=== PATIENT | male | born 1980 | race Caucasian/White ===

== ENCOUNTER 2018-02-25 12:00 | Emergency (ER) | payer SELFPAY ==
[2018-02-25] MEDS ORDERED: LORazepam 2 MG/ML VIAL ONE (12:26)
[2018-02-25] MEDS ORDERED: NA CHLORIDE 0.9% 1,000 ML ONE (12:26)
[2018-02-25 12:37] LABS: Absolute Monocytes 0.5 K/uL (0.1-1.3); Absolute Neutrophil 3.8 K/uL (1.8-8.0); Basophils % 0.9 % (0-1.3); Eosinophils % 1.6 % (0-4.4); Hematocrit 49.4 % (39.6-49.0); Lymphocytes % 39.7 % (15.3-44.8); MCH 33.9 pg (27.0-35.0); MCV 98.9 fL (80-100); MPV 9.7 fL (7.6-11.3); Monocytes % 7.2 % (3.3-12.3)
[2018-02-25 12:51] LABS: ALT/SGPT 138 U/L (12-78); AST/SGOT 103 U/L (15-37); Albumin 4.2 g/dL (3.4-5.0); Alkaline Phosphatase 92 U/L (45-117); BUN Blood Urea Nitrogen 9 mg/dL (7-18); Bicarbonate 27 mmol/L (21-32); Bilirubin Direct 0.2 mg/dL (0-0.2); Glucose Level 99 mg/dL (74-106); Lipase 162 U/L (73-393); Potassium 3.4 mmol/L (3.5-5.1); Protein, Total 7.8 g/dL (6.4-8.2); Sodium Level 141 mmol/L (136-145)
[2018-02-25] MEDS ORDERED: ONDANSETRON 4 MG/2 ML VIAL ONE (12:54)
[2018-02-25 12:56] LABS: Alcohol Serum/Plasma 110 mg/dL (0-3)
--- NOTE | 2018-02-25 13:15 | RAD REPORT ---
EXAM DESCRIPTION: US - Abdomen Exam Limited - 02/25/2018 1:03 pm CLINICAL HISTORY: Abdominal pain COMPARISON: None. FINDINGS: Gallbladder size is normal. No gallstones confirmed. Small echogenic focus near the neck o f the gallbladder suspected to be artifact rather than echogenic polyp or adherent stone. No sludge. No wall thickening or pericholecystic fluid. Common bile duct is partially obscured. No common duct s tone suspected. Liver shows a coarsened increased echogenicity typical for fatty infiltration. This d oes decrease sensitivity for liver lesion detection. IMPRESSION: No gallstones confirmed and no sludge identifiable. No acute gallbladder finding identif iable. Biliary tree is not optimally seen. No dilatation or stone suspected. Diffuse fatty infiltration of a partially imaged liver.
[2018-02-25 15:11] LABS: Urine Blood NEGATIVE (NEG); Urine Glucose NEGATIVE (NEG); Urine Protein 2+ (NEG); Urine Specific Gravity 1.025 (1.005-1.030)
--- NOTE | 2018-02-25 15:11 | RAD REPORT ---
EXAM DESCRIPTION: CT - Abdomen Pelvis W Contrast - 02/25/2018 2:59 pm CLINICAL HISTORY: Abdominal pain, nausea and vomiting COMPARISON: None. TECHNIQUE: Biphasic, helical CT imaging of the abdomen and pelvis was performed following 100 ml non -ionic IV contrast. Oral contrast was given. All CT scans are performed using dose optimization technique as appropriate and may include automated exposure control or mA/KV adjustment according to patient size. FINDINGS: No suspicious findings in the lung bases. Liver shows diffuse fatty infiltration with no focal liver lesion. Spleen and pancreas show no suspic ious findings. Gallbladder and biliary tree are also without suspicious finding. Symmetric renal function is seen with no hydronephrosis or suspicious renal mass. No hydronephrosis o r acute renal parenchymal process. No urinary bladder abnormality. No dilated bowel loops or bowel wall thickening. No free air, free fluid or inflammatory stranding. No hernia, mass or bulky lymphadenopathy. No adrenal abnormality. No suspicious bony findings. IMPRESSION: Contrast enhanced CT abdomen and pelvis showing no acute finding. Diffuse fatty infiltration of the liver.
--- NOTE | 2018-02-25 15:33 | ER ---
Nurse's Notes [facility] Name: Rickie Bailey Age: 37 yrs Sex: Male : 1980 Arrival Date: 02/25/2018 Time: 12:02 Bed 6 Private MD: None, None Diagnosis: Hyperventilation;Alcoholic gastritis;Alcoholic fatty liver;Dehydration Presentation: 02/25 12:05 Presenting complaint: Patient states: for weeks now geoff been having Chest pressure, pt sg reports that he has had nausea and vomiting, pt states he was seen for this complaint and everything was normal. Transition of care: patient was not received from another setting of care. Onset of symptoms was February 25, 2018. Risk Assessment: Do you want to hurt yourself or someone else? Patient reports no desire to harm self or others. Initial Sepsis Screen: Does the patient meet any 2 criteria? No. Patient's initial sepsis screen is negative. Does the patient have a suspected source of infection? No. Patient's initial sepsis screen is negative. Care prior to arrival: None. 12:05 Method Of Arrival: Ambulatory sg 12:05 Acuity: ABRIL 2 sg Historical: - Allergies: 12:05 Codeine; sg - Home Meds: 12:35 carvedilol 12.5 mg oral tab 1 tab 2 times per day [Active]; sg - PMHx: 12:10 None; sg - PSHx: 12:05 None; sg - Immunization history:: Adult Immunizations not up to date. - Social history:: Smoking status: Patient uses tobacco products, smokes one pack cigarettes per day. Patient uses alcohol, on a daily basis. - Ebola Screening: : Patient negative for fever greater than or equal to 101.5 degrees Fahrenheit, and additional compatible Ebola Virus Disease symptoms Patient denies exposure to infectious person Patient denies travel to an Ebola-affected area in the 21 days before illness onset No symptoms or risks identified at this time. - Family history:: not pertinent. - Hospitalizations: : No recent hospitalization is reported. Screenin:21 Abuse screen: Denies threats or abuse. Denies injuries from another. Nutritional sv screening: No deficits noted. Tuberculosis screening: No symptoms or risk factors identified. Fall Risk None identified. Assessment: 12:27 General: Appears uncomfortable, unkempt, Behavior is anxious, Smells of alcohol, ss Reports feeling ill for "for weeks, has gotten worse over the past few days.". Denies fever. Pain: Complains of pain in abdomen Pain does not radiate. Pain began "few weeks ago, has gotten progressively worse". Neuro: Level of Consciousness is awake, alert, obeys commands, Oriented to person, place, time, situation. Cardiovascular: Reports nausea, shortness of breath, intermittent chest tightness for weeks, has gotten worse this morning. Was seen in another ER three days ago for similar symptoms and sent home with unknown diagnosis. Capillary refill < 3 seconds is brisk in bilateral fingers Rhythm is sinus tachycardia. Respiratory: Airway is patent Respiratory effort is even, Respiratory pattern is regular, hyperventilation Breath sounds are clear bilaterally. Denies cough. GI: Reports upper abdominal pain, nausea, vomiting, pt states, "my liver hurts and my what ever is over here (pointing to LUQ) hurts probably because I've been drinking so much lately.". EENT: Oral mucosa is moist. Throat is clear. Derm: Skin is intact, is healthy with good turgor, Skin is dry, Skin is pink, warm \\T\\ dry. normal. Musculoskeletal: Circulation, motion, and sensation intact. Capillary refill < 3 seconds, is brisk, in bilateral fingers. Range of motion: intact in all extremities, Swelling. 12:54 Reassessment: Patient appears in no apparent distress at this time. Patient and/or sv family updated on plan of care and expected duration. Pain level reassessed. Patient is alert, oriented x 3, equal unlabored respirations, skin warm/dry/pink. 14:20 Reassessment: Patient appears in no apparent distress at this time. Patient and/or sv family updated on plan of care and expected duration. Pain level reassessed. Patient is alert, oriented x 3, equal unlabored respirations, skin warm/dry/pink. 15:46 Reassessment: Patient appears in no apparent distress at this time. Patient and/or sv family updated on plan of care and expected duration. Pain level reassessed. Patient is alert, oriented x 3, equal unlabored respirations, skin warm/dry/pink. Vital Signs: 12:08 Pain 10/10; sg 12:09 Pulse 123; Resp 20; Pulse Ox 100% on R/A; sg 12:10 BP 143 / 101; sg 12:21 BP 127 / 90; Pulse 124; Resp 15; Pulse Ox 98% ; sv 13:21 BP 142 / 82; Pulse 111; Resp 18; Pulse Ox 99% on R/A; dh3 14:21 BP 118 / 78; Pulse 124; Resp 17; Pulse Ox 96% on R/A; dh3 15:20 BP 152 / 95; Pulse 113; Resp 18; Pulse Ox 98% ; sv ED Course: 12:02 Patient arrived in ED. sb2 12:02 None, None is Private Physician. sb2 12:05 Arm band placed on. sg 12:08 Triage completed. sg 12:16 Clarence Grande MD is Attending Physician. rn 12:20 Annie Bowen RN is Primary Nurse. sv 12:20 Inserted saline lock: 20 gauge in right antecubital area, using aseptic technique. sv 12:21 Patient has correct armband on for positive identification. Placed in gown. Bed in low sv position. cafeteria monitor on. Pulse ox on. NIBP on. 12:24 EKG done, by conservation technician. reviewed by Clarence Grande MD. sm3 12:28 Patient maintains SpO2 saturation greater than 95% on room air. sv 12:45 X-ray completed. Portable x-ray completed in exam room. Patient tolerated procedure sw well. 12:47 XRAY Chest (1 view) In Process Unspecified. EDMS 13:03 US Abdomen Limited In Process Unspecified. EDMS 13:04 Ultrasound completed. Patient tolerated well. hr 14:[address] via wheelchair. nj 14:56 CT completed. Patient tolerated procedure well. Patient moved back from CT. nj 14:59 CT Abd/Pelvis - W/Contrast In Process Unspecified. EDMS 15:46 No provider procedures requiring assistance completed. IV discontinued, intact, sv bleeding controlled, No redness/swelling at site. Pressure dressing applied. Administered Medications: 12:26 Drug: Ativan 1 mg Route: IVP; Site: right antecubital; ss 12:50 Follow up: Response: No adverse reaction; No change in condition sv 12:27 Drug: NS 0.9% 1000 ml Route: IV; Rate: 1000 ml; Site: right antecubital; ss 13:30 Follow up: Response: No adverse reaction; IV Status: Completed infusion; IV Intake: sv 1000ml 12:52 Drug: Zofran 4 mg Route: IVP; Site: right antecubital; sv 13:15 Follow up: Response: No adverse reaction sv 12:54 Drug: Ativan 1 mg Route: IVP; Site: right antecubital; sv 13:15 Follow up: Response: No adverse reaction sv Intake: 13:30 IV: 1000ml; Total: 1000ml. sv Outcome: 15:32 Discharge ordered by . rn 15:46 Discharged to home ambulatory. sv 15:46 Condition: stable 15:46 Discharge instructions given to patient, Instructed on discharge instructions, follow up and referral plans. no drinking with medication, no driving heavy equipment, medication usage, Demonstrated understanding of instructions, follow-up care, medications, Prescriptions given X 1. 15:48 Patient left the ED. sv Signatures: Dispatcher [employer] EDMS Annie Bowen RN RN sv Gay, Steven, RN RN sg Rod, Clarence Bryan MD MD rn Smirch, Shelby, RN RN ss Warren, Shannon sw Jordan, Karena Barrera 3 Kiersten Clayton Shakira 3 Corrections: (The following items were deleted from the chart) 12:20 12:05 Acuity: ABRIL 3 sg sg 14:27 14:21 BP 160 / 112; Pulse 124bpm; Resp 17bpm; Pulse Ox 96% RA; dh3 dh3
--- NOTE | 2018-02-25 15:49 | EDPHYS ---
Physician Documentation [facility] Name: Rickie Bailey Age: 37 yrs Sex: Male : 1980 Arrival Date: 02/25/2018 Time: 12:02 Bed 6 Private MD: None, None ED Physician Clarence Grande HPI: 02/25 13:03 This 37 yrs old Male presents to ER via Ambulatory with complaints of Chest rn Pressure, Weakness, Numbness. 13:03 The patient or guardian reports chest pain that is located primarily in the chest rn diffusely. The pain does not radiate. Associated signs and symptoms: Pertinent positives: abdominal pain, lightheadedness, palpitations, vomiting. The chest pain is described as aching. Duration: The patient or guardian reports multiple episodes, that are intermittent. Modifying factors: The symptoms are alleviated by nothing. the symptoms are aggravated by nothing. Severity of pain: At its worst the pain was moderate in the emergency department the pain is unchanged. The patient has experienced similar episodes in the past. The patient has been recently seen by a physician:. REports chest pain/palpitations/abd pain/nausea/vomiting, has been going on "for awhile", seen 3 days ago at outside ER, told everything ok, sent home with phenergan, is daily drinker, known liver problems but no cirrhosis. Vomiting when attempting to eat.. Historical: - Allergies: 12:05 Codeine; sg - Home Meds: 12:35 carvedilol 12.5 mg oral tab 1 tab 2 times per day [Active]; sg - PMHx: 12:10 None; sg - PSHx: 12:05 None; sg - Immunization history:: Adult Immunizations not up to date. - Social history:: Smoking status: Patient uses tobacco products, smokes one pack cigarettes per day. Patient uses alcohol, on a daily basis. - Ebola Screening: : Patient negative for fever greater than or equal to 101.5 degrees Fahrenheit, and additional compatible Ebola Virus Disease symptoms Patient denies exposure to infectious person Patient denies travel to an Ebola-affected area in the 21 days before illness onset No symptoms or risks identified at this time. - Family history:: not pertinent. - Hospitalizations: : No recent hospitalization is reported. ROS: 13:03 Constitutional: Negative for fever, chills, and weight loss, Eyes: Negative for injury, rn pain, redness, and discharge, Neck: Negative for injury, pain, and swelling, Cardiovascular: Negative for edema Respiratory: Negative for cough, wheezing, and pleuritic chest pain, Abdomen/GI: + abd pain/nausea/vomiting Back: Negative for injury and pain, MS/Extremity: Negative for injury and deformity, Skin: Negative for injury, rash, and discoloration, Neuro: + generalized weakness, + tingling of hands and perioral region Exam: 13:03 Constitutional: This is a well developed, well nourished patient who is awake, alert, rn appears anxious Head/Face: Normocephalic, atraumatic. Eyes: Pupils equal round and reactive to light, extra-ocular motions intact. Lids and lashes normal. Conjunctiva and sclera are non-icteric and not injected. Cornea within normal limits. Periorbital areas with no swelling, redness, or edema. Neck: Trachea midline, no thyromegaly or masses palpated, and no cervical lymphadenopathy. Supple, full range of motion without nuchal rigidity, or vertebral point tenderness. No Meningismus. Cardiovascular: tachycardic, regular, no murmur Respiratory: + tachypnea with clear bilateral breath sounds Abdomen/GI: Soft, non-tender, with normal bowel sounds. No distension or tympany. No guarding or rebound. No evidence of tenderness throughout. MS/ Extremity: Pulses equal, no cyanosis. Neurovascular intact. Full, normal range of motion. Equal circumference. Neuro: Awake and alert, GCS 15, oriented to person, place, time, and situation. Cranial nerves II-XII grossly intact. Motor strength 5/5 in all extremities. Sensory grossly intact. Vital Signs: 12:08 Pain 10/10; sg 12:09 Pulse 123; Resp 20; Pulse Ox 100% on R/A; sg 12:10 BP 143 / 101; sg 12:21 BP 127 / 90; Pulse 124; Resp 15; Pulse Ox 98% ; sv 13:21 BP 142 / 82; Pulse 111; Resp 18; Pulse Ox 99% on R/A; dh3 14:21 BP 118 / 78; Pulse 124; Resp 17; Pulse Ox 96% on R/A; dh3 15:20 BP 152 / 95; Pulse 113; Resp 18; Pulse Ox 98% ; sv MDM: 12:16 Patient medically screened. rn 15:28 Differential diagnosis: acute pericarditis, anxiety, cholecystitis, Cholelithiasis rn costochondritis, esophagitis, gastritis, gastroesophageal reflux disease (GERD), pancreatitis, pericarditis, pleurisy, pneumothorax. Data reviewed: vital signs, nurses notes, lab test result(s), EKG, radiologic studies, CT scan, plain films, ultrasound, and as a result, I will discharge patient. Counseling: I had a detailed discussion with the patient and/or guardian regarding: the historical points, exam findings, and any diagnostic results supporting the discharge/admit diagnosis, lab results, radiology results, the need for outpatient follow up, to return to the emergency department if symptoms worsen or persist or if there are any questions or concerns that arise at home. Response to treatment: the patient's symptoms have mildly improved after treatment, and as a result, I will discharge patient. Special discussion: Based on the patient's history, exam, and Dx evaluation, there is no indication for emergent intervention or inpatient Tx. It is understood by the patient/guardian that if the Sx's persist or worsen they need to return immediately for re-evaluation. Based on the patient's Hx, exam, and Dx evaluation, there is no indication for emergent surgery or inpatient Tx. It is understood by the patient/guardian that if the Sx's persist or worsen they need to return immediately for re-evaluation. I discussed with the patient/guardian in detail that at this point there is no indication for admission to the hospital. It is understood, however, that if the symptoms persist or worsen the patient needs to return immediately for re-evaluation. Based on the history and exam findings, there is no indication for further emergent testing or inpatient evaluation. I discussed with the patient/guardian the need to see the peanut grader for further evaluation of the symptoms. ED course: Pt improved, no acute findings on w/u, labs consistent with alcoholism that patient admits to, chest pain w/u negative, recommends ETOH cessation and antacid medication as may be alcoholic gastritis. Also recommend detox center if ever wants to quit drinking, which it sounds he is not ready to do yet. Will dc home. . 02/25 12:23 Order name: Basic Metabolic Panel; Complete Time: 13:48 rn 02/25 12:23 Order name: CBC with Diff; Complete Time: 13:48 rn 02/25 12:23 Order name: Hepatic Function; Complete Time: 13:48 rn 02/25 12:23 Order name: Lipase; Complete Time: 13:48 rn 02/25 12:23 Order name: Troponin (emerg Dept Use Only); Complete Time: 13:48 rn 02/25 12:23 Order name: ETOH Level; Complete Time: 13:48 rn 02/25 12:23 Order name: XRAY Chest (1 view) rn 02/25 12:23 Order name: Urine Drug Screen rn 02/25 12:28 Order name: US Abdomen Limited; Complete Time: 13:48 rn 02/25 12:29 Order name: CT Abd/Pelvis - W/Contrast; Complete Time: 15:21 rn 02/25 14:34 Order name: Urine Dipstick--Ancillary (enter results); Complete Time: 15:21 em1 02/25 12:14 Order name: EKG; Complete Time: 12:14 sn 02/25 12:14 Order name: EKG - Nurse/Tech; Complete Time: 12:21 formerly [facility] 02/25 12:23 Order name: IV Start; Complete Time: 12:24 rn 02/25 12:23 Order name: Labs collected and sent; Complete Time: 12:24 rn 02/25 13:09 Order name: EKG Electrocardiogram EDMS Administered Medications: 12:26 Drug: Ativan 1 mg Route: IVP; Site: right antecubital; ss 12:50 Follow up: Response: No adverse reaction; No change in condition sv 12:27 Drug: NS 0.9% 1000 ml Route: IV; Rate: 1000 ml; Site: right antecubital; ss 13:30 Follow up: Response: No adverse reaction; IV Status: Completed infusion; IV Intake: sv 1000ml 12:52 Drug: Zofran 4 mg Route: IVP; Site: right antecubital; sv 13:15 Follow up: Response: No adverse reaction sv 12:54 Drug: Ativan 1 mg Route: IVP; Site: right antecubital; sv 13:15 Follow up: Response: No adverse reaction sv Disposition: 02/25/18 15:32 Discharged to Home. Impression: Hyperventilation, Alcoholic gastritis, Alcoholic fatty liver, Dehydration. - Condition is Stable. - Discharge Instructions: Alcohol Use Disorder, Dehydration, Adult, Gastritis, Adult, Hyperventilation, Alcoholic Liver Disease, [id number]. - Prescriptions for Valium 2 mg Oral Tablet - take 1 tablet by ORAL route every 8-12 hours As needed; 5 tablet. - Medication Reconciliation Form, Thank You Letter, Antibiotic Education, Prescription Opioid Use form. - Follow up: Private Physician; When: As needed; Reason: Recheck today's complaints, Re-evaluation by your physician. - Problem is new. - Symptoms have improved. Signatures: Dispatcher [employer] Annie Ojeda RN RN sv Gay, Steven RN RN sg Francy Young, CLINICAL DIETICIAN-C CLINICAL DIETICIAN-Csnw Clarence Grande MD MD rn Smirch, Shelby, RN RN ss Corrections: (The following items were deleted from the chart) 13:06 13:03 Constitutional: Negative for fever, chills, and weight loss, Eyes: Negative for rn injury, pain, redness, and discharge, Neck: Negative for injury, pain, and swelling, Cardiovascular: Negative for edema Respiratory: Negative for cough, wheezing, and pleuritic chest pain, Abdomen/GI: + abd pain/nausea/vomiting Back: Negative for injury and pain, MS/Extremity: Negative for injury and deformity, Skin: Negative for injury, rash, and discoloration, Neuro: + generalized weakness rn 13:10 13:03 Constitutional: This is a well developed, well nourished patient who is awake, rn alert, and in no acute distress. rn 15:48 15:32 02/25/2018 15:32 Discharged to Home. Impression: Hyperventilation; Alcoholic sv gastritis; Alcoholic fatty liver; Dehydration. Condition is Stable. Forms are Medication Reconciliation Form, Thank You Letter, Antibiotic Education, Prescription Opioid Use. Follow up: Private Physician; When: As needed; Reason: Recheck today's complaints, Re-evaluation by your physician. Problem is new. Symptoms have improved. rn
[2018-02-25 15:56] VITALS: BP 118/78; O2SAT 96
--- NOTE | 2018-02-25 16:04 | RAD REPORT ---
EXAM DESCRIPTION: [place] Single View02/25/2018 12:48 pm CLINICAL HISTORY: Chest pain COMPARISON: 2013 FINDINGS: The lungs appear clear of acute infiltrate. The heart is normal size IMPRESSION: No acute abnormalities displayed
--- NOTE | 2018-02-25 18:45 | EKG ---
Test Date: 2018-02-25 Test Time: 12:16:55 Embedded Software Design Engineer: RUBIN MEASUREMENT RESULTS: Intervals: Rate: 127 MI: 144 QRSD: 98 QT: 318 QTc: 462 [place]: P: 56 MI: 144 QRS: -32 T: 39 INTERPRETIVE STATEMENTS: Sinus tachycardia Left axis deviation Inferior infarct, age undetermined Abnormal ECG Compared to ECG 02/25/2018 12:10:38 Left-axis deviation now present Myocardial infarct finding now present Electronically Signed On 02-25-18 18:43:[address]
--- NOTE | 2018-02-25 18:45 | EKG ---
Test Date: 2018-02-25 Test Time: 12:10:38 Associate Artistic Director: RUBIN MEASUREMENT RESULTS: Intervals: Rate: 144 [place]: 136 QRSD: 90 QT: 300 QTc: 464 [place]: P: [place]: 136 QRS: -13 T: 53 INTERPRETIVE STATEMENTS: Sinus tachycardia Otherwise normal ECG Compared to ECG 12/02/2013 09:19:33 Sinus rhythm no longer present Incomplete right bundle-branch block no longer present Electronically Signed On 02-25-18 18:44:[address]
[2018-02-25 19:00] LABS: Barbiturates NEGATIVE (NEGATIVE); Benzodiazepines NEGATIVE (NEGATIVE); Cocaine NEGATIVE (NEGATIVE); METHAMPHETAM NEGATIVE (NEGATIVE); Methadone NEGATIVE (NEGATIVE); Opiates NEGATIVE (NEGATIVE); Phencyclidine NEGATIVE (NEGATIVE); THC Cannibis NEGATIVE (NEGATIVE)
== END 2018-02-25 15:48 | disposition home or self-care (01) ==
LOC: ER 12:00
DX: E86.0 Dehydration (principal); K29.20 Alcoholic gastritis without bleeding; K70.0 Alcoholic fatty liver; Z88.5 Allergy status to narcotic agent
CPT/HCPCS: 36415; 71045; 74177; 76705; 80048; 80076; 80307; 80320; 81003; 83690; 84484; 85025; 93005; 96361; 96374; 96375; 99285; J2405; J7030; Q9967

== ENCOUNTER 2021-03-30 23:52 | Inpatient (IN) | payer SELFPAY ==
[2021-03-31 00:32] LABS: Absolute Lymphocytes (CBC) 0.9 K/uL (0.7-4.9); Basophils % 0.9 % (0-1.3); Hematocrit 38.7 % (39.6-49.0); Lymphocytes % 19.5 % (15.3-44.8); MPV 10.3 fL (7.6-11.3); RBC Red Blood Cell Count 3.77 M/uL (4.33-5.43)
[2021-03-31 02:12] LABS: Barbiturates NEGATIVE (NEGATIVE); Benzodiazepines NEGATIVE (NEGATIVE); Cocaine NEGATIVE (NEGATIVE); METHAMPHETAM NEGATIVE (NEGATIVE); Methadone NEGATIVE (NEGATIVE); Opiates NEGATIVE (NEGATIVE); Phencyclidine NEGATIVE (NEGATIVE); THC Cannibis POSITIVE (NEGATIVE)
[2021-03-31 02:13] LABS: ALT/SGPT 88 U/L (12-78); AST/SGOT 179 U/L (15-37); Albumin 3.8 g/dL (3.4-5.0); Alkaline Phosphatase 82 U/L (45-117); BUN Blood Urea Nitrogen 6 mg/dL (7-18); Bicarbonate 28 mmol/L (21-32); Bilirubin Direct 0.7 mg/dL (0-0.2); Bilirubin Total 1.4 mg/dL (0.2-1.0); Glucose Level 124 mg/dL (74-106); Lipase 6908 U/L (73-393); Protein, Total 7.2 g/dL (6.4-8.2); Sodium Level 134 mmol/L (136-145)
[2021-03-31 02:35] LABS: Urine Bacteria 20-50 /HPF (NONE SEEN); Urine Mucus 3+ /HPF (NONE SEEN)
[2021-03-31 02:40] LABS: Potassium 2.3 mmol/L (3.5-5.1)
[2021-03-31] MEDS ORDERED: MORPHINE 4 MG/ML SYR ONE (03:57)
[2021-03-31] MEDS ORDERED: ONDANSETRON 4 MG/2 ML VIAL ONE ×2 (03:57→08:24)
[2021-03-31] MEDS ORDERED: NA CHLORIDE 0.9% 1,000 ML ONE ×4 (03:57→09:47)
[2021-03-31] MEDS ORDERED: KCL 20 MEQ/100 mL IVPB 20 MEQ/100 ML BAG IV ONE (04:24)
[2021-03-31] MEDS ORDERED: POTASSIUM CL SA 10 MEQ TAB PO ONE (04:24)
[2021-03-31] MEDS ORDERED: FENTANYL CITR 100 MCG/2 ML ONE (04:43)
--- NOTE | 2021-03-31 04:50 | ER ---
Nurse's Notes [facility] Name: Rickie Bailey Age: 40 yrs Sex: Male : 1980 Arrival Date: 03/30/2021 Time: 23:53 Bed 10 Private MD: Diagnosis: Acute pancreatitis. Hypokalema Presentation: 03/31 00:02 Chief complaint: Patient states: Abdominal pain LUQ radiating across top of abdomen. kg Coronavirus screen: Client denies travel out of the [place] in the last 14 days. At this time, unable to obtain information related to travel outside the [place] At this time, the client does not indicate any symptoms associated with coronavirus-19. Ebola Screen: Patient negative for fever greater than or equal to 101.5 degrees Fahrenheit, and additional compatible Ebola Virus Disease symptoms Patient denies exposure to infectious person. Patient denies travel to an Ebola-affected area in the 21 days before illness onset. Initial Sepsis Screen: Does the patient meet any 2 criteria? No. Patient's initial sepsis screen is negative. Does the patient have a suspected source of infection? No. Patient's initial sepsis screen is negative. Risk Assessment: Do you want to hurt yourself or someone else? Patient reports no desire to harm self or others. Onset of symptoms was March 30, 2021 at 16:00. 00:02 Method Of Arrival: EMS: [facility] kg 00:02 Acuity: ABRIL 3 kg Triage Assessment: 00:03 General: Appears uncomfortable, Behavior is calm, cooperative, appropriate for age, kg quiet. Pain: Complains of pain in left upper quadrant Pain radiates to right upper quadrant and left upper quadrant Pain currently is 10 out of 10 on a pain scale. at worst was 10 out of 10 on a pain scale. level that patient reports is acceptable is 3 out of 10 on a pain scale. Quality of pain is described as burning. GI: Reports upper abdominal pain. Historical: - Allergies: 00:03 KNDA; kg - Home Meds: 00:03 None [Active]; kg - PMHx: 00:03 Heart Palpitations; kg - PSHx: 00:03 None; kg - Immunization history:: Adult Immunizations not up to date, Client reports having NOT received the Covid vaccine. - Social history:: Smoking status: Patient reports the use of cigarette tobacco products, denies chronic smoking, but will smoke occasionally, Patient uses alcohol, occasionally. Screenin:06 Abuse screen: Denies threats or abuse. Denies injuries from another. Nutritional kg screening: No deficits noted. Tuberculosis screening: No symptoms or risk factors identified. Fall Risk None identified. Vital Signs: 00:02 BP 120 / 94; Pulse 84; Resp 16; Temp 98.0(O); Pulse Ox 100% on R/A; Weight 97.07 kg kg (R); Height 6 ft. 0 in. (182.88 cm) (R); Pain 10/10; 04:15 BP 123 / 80; Pulse 97; Resp 18; Temp 98.4; Pulse Ox 98% ; Pain 10/10; ms4 00:02 Body Mass Index 29.02 (97.07 kg, 182.88 cm) kg ED Course: 03/30 23:53 Patient arrived in ED. bp1 03/31 00:03 Triage completed. kg 00:06 Patient has correct armband on for positive identification. kg 03:14 Antonio Lester MD is Attending Physician. pkl 03:40 CT Abd/Pelvis - IV Contrast Only Sent. ms4 03:57 CT Abd/Pelvis - IV Contrast Only In Process Unspecified. EDMS 04:48 Maninder Fraser DO is Hospitalizing Provider. pkl 04:55 Lipid Profile Sent. ms4 07:43 Rashmi Buckley, RN is Primary Nurse. aa5 Administered Medications: 03:39 CANCELLED (Duplicate Order): morphine 4 mg IM once; RASS on ADMIN: Combtv4, Very ms4 Agttd3, Agttd2, Rstlss1, AlertClm0, Drwsy-1, Lt Sdtn-2, Mod Sdtn-3, Dp Sdtn-4, UnArsble-5 03:39 Drug: morphine 4 mg Route: IVP; Site: right antecubital; ms4 03:39 Follow up: Response: No adverse reaction ms4 03:40 Drug: NS 0.9% 1000 ml Route: IV; Rate: 1000 ml; Site: right antecubital; ms4 07:02 Follow up: Response: No adverse reaction; IV Intake: 1000ml ms4 07:20 Follow up: IV Status: Completed infusion; IV Intake: 1000ml aa5 03:40 Drug: Zofran (Ondansetron) 4 mg Route: IVP; Site: right antecubital; ms4 03:40 Follow up: Response: No adverse reaction ms4 04:14 Drug: K-Dur (potassium chloride) 40 mEq Route: PO; ms4 04:14 Drug: Potassium Chloride 20 mEq Route: IV; Rate: calculated rate; Site: right ms4 antecubital; 04:24 Drug: fentaNYL (PF) 50 mcg Route: IVP; Site: right antecubital; ms4 04:24 Follow up: Response: No adverse reaction ms4 05:12 Not Given (Physician Discretion): NS 0.9% 1000 ml IV at 125 ml/hr continuous ms4 07:02 Drug: D5-1/2 NS with KCl 20 mEq/L 1000 ml Route: IV; Rate: 150 ml/hr; Site: right ms4 antecubital; 07:30 Follow up: IV Status: Infusion continued upon admission aa5 07:25 Drug: NS 0.9% 1000 ml Route: IV; Rate: 1000 ml; Site: right antecubital; aa5 08:30 Follow up: IV Status: Completed infusion; IV Intake: 1000ml aa5 Intake: 07:02 IV: 1000ml; Total: 1000ml. ms4 07:20 IV: 1000ml; Total: 2000ml. aa5 08:30 IV: 1000ml; Total: 3000ml. aa5 Outcome: 04:49 Decision to Hospitalize by Provider. pkl 07:30 Admitted to ER Hold. Please see [facility] for further documentation. aa5 18:07 Patient left the ED. eb Signatures: Dispatcher [employer] EDMS Antonio Lester MD MD pkl Rashmi Buckley, RN RN aa5 Laura Otero Brittany bp1 Graham, Kristen, RN RN kg Kristina To RN RN ms4 Corrections: (The following items were deleted from the chart) 00:05 00:03 PMHx: Hypertensive disorder; kg kg
--- NOTE | 2021-03-31 04:50 | EDPHYS ---
Physician Documentation [facility] Name: Rickie Bailey Age: 40 yrs Sex: Male : 1980 Arrival Date: 03/30/2021 Time: 23:53 Bed 10 Private MD: ED Physician Antonio Lester HPI: 03/31 04:44 This 40 yrs old Male presents to ER via EMS with complaints of Abdominal Pain.pkl 04:45 The patient presents with abdominal pain in the upper abdomen. Onset: The pkl symptoms/episode began/occurred just prior to arrival, 6 hour(s) ago. The symptoms do not radiate. Associated signs and symptoms: none. Historical: - Allergies: 00:03 KNDA; kg - Home Meds: 00:03 None [Active]; kg - PMHx: 00:03 Heart Palpitations; kg - PSHx: 00:03 None; kg - Immunization history:: Adult Immunizations not up to date, Client reports having NOT received the Covid vaccine. - Social history:: Smoking status: Patient reports the use of cigarette tobacco products, denies chronic smoking, but will smoke occasionally, Patient uses alcohol, occasionally. ROS: 04:45 Eyes: Negative for injury, pain, redness, and discharge, ENT: Negative for injury, pkl pain, and discharge, Neck: Negative for injury, pain, and swelling, Cardiovascular: Negative for chest pain, palpitations, and edema, Respiratory: Negative for shortness of breath, cough, wheezing, and pleuritic chest pain. 04:45 Abdomen/GI: Positive for abdominal pain, of the right upper quadrant and left upper quadrant. 04:45 Back: Negative for acute changes. 04:45 : Negative for urinary symptoms. 04:45 MS/extremity: Negative for acute changes. 04:45 Skin: Negative for rash. 04:45 Neuro: Negative for altered mental status. Exam: 04:45 Head/Face: Normocephalic, atraumatic. Eyes: Pupils equal round and reactive to light, pkl extra-ocular motions intact. Lids and lashes normal. Conjunctiva and sclera are non-icteric and not injected. Cornea within normal limits. Periorbital areas with no swelling, redness, or edema. ENT: Nares patent. No nasal discharge, no septal abnormalities noted. Tympanic membranes are normal and external auditory canals are clear. Oropharynx with no redness, swelling, or masses, exudates, or evidence of obstruction, uvula midline. Mucous membranes moist. Neck: Trachea midline, no thyromegaly or masses palpated, and no cervical lymphadenopathy. Supple, full range of motion without nuchal rigidity, or vertebral point tenderness. No Meningismus. Chest/axilla: Normal chest wall appearance and motion. Nontender with no deformity. No lesions are appreciated. Cardiovascular: Regular rate and rhythm with a normal S1 and S2. No gallops, murmurs, or rubs. Normal PMI, no JVD. No pulse deficits. Respiratory: Lungs have equal breath sounds bilaterally, clear to auscultation and percussion. No rales, rhonchi or wheezes noted. No increased work of breathing, no retractions or nasal flaring. 04:45 Abdomen/GI: Bowel sounds: normal, Palpation: soft, moderate abdominal tenderness, in the right upper quadrant and left upper quadrant. 04:45 Back: Exam negative for acute changes. 04:45 : Exam negative for acute changes. 04:45 Musculoskeletal/extremity: Exam is negative for acute changes. 04:45 Skin: Exam negative for rash. 04:45 Neuro: Orientation: is normal, Mentation: is normal, Cranial nerves: grossly normal, Motor: is normal. Vital Signs: 00:02 BP 120 / 94; Pulse 84; Resp 16; Temp 98.0(O); Pulse Ox 100% on R/A; Weight 97.07 kg kg (R); Height 6 ft. 0 in. (182.88 cm) (R); Pain 10/10; 04:15 BP 123 / 80; Pulse 97; Resp 18; Temp 98.4; Pulse Ox 98% ; Pain 10/10; ms4 00:02 Body Mass Index 29.02 (97.07 kg, 182.88 cm) kg MDM: 03:14 Patient medically screened. pkl 04:45 Data reviewed: vital signs, nurses notes, lab test result(s), radiologic studies, CT pkl scan. ED course: Talked to Ruben Esquivel ( [employer] ASSISTANT ) Admit to Dr. Fraser. 03/31 00:07 Order name: Basic Metabolic Panel; Complete Time: 03:15 kg 03/31 00:07 Order name: CBC with Diff; Complete Time: 02:41 kg 0808 00:07 Order name: Hepatic Function; Complete Time: 03:15 kg 0808 00:07 Order name: Lipase; Complete Time: 03:15 kg 08 01:34 Order name: Urine Microscopic Only; Complete Time: 02:41 tt3 08 01:35 Order name: UDS; Complete Time: 02:41 kg 08 02:36 Order name: Urine Culture EDMS 03/31 03:20 Order name: CT Abd/Pelvis - IV Contrast Only pkl 03/31 04:45 Order name: Lipid Profile; Complete Time: 05:30 tt3 0808 05:07 Order name: LDH la1 03/31 05:08 Order name: COVID-19 : Document "Date of Symptom Onset" if Symptomatic. la1 03/31 07:35 Order name: SARS-COV-2 RT PCR; Complete Time: 23:12 EDMS 03/31 11:12 Order name: US; Complete Time: 23:12 EDMS 03/31 14:37 Order name: Comprehensive Metabolic Panel; Complete Time: 23:12 EDMS 03/31 00:07 Order name: IV Saline Lock; Complete Time: 03:17 kg 0808 00:07 Order name: Labs collected and sent; Complete Time: 03:17 kg 08 04:59 Order name: Misc. Order: Give total of 2L NS bolus then start 1/2NS with 20MEQ KCL at la1 150cc/hr, see meditech.; Complete Time: 05:08 Administered Medications: 03:39 CANCELLED (Duplicate Order): morphine 4 mg IM once; RASS on ADMIN: Combtv4, Very ms4 Agttd3, Agttd2, Rstlss1, AlertClm0, Drwsy-1, Lt Sdtn-2, Mod Sdtn-3, Dp Sdtn-4, UnArsble-5 03:39 Drug: morphine 4 mg Route: IVP; Site: right antecubital; ms4 03:39 Follow up: Response: No adverse reaction ms4 03:40 Drug: NS 0.9% 1000 ml Route: IV; Rate: 1000 ml; Site: right antecubital; ms4 07:02 Follow up: Response: No adverse reaction; IV Intake: 1000ml ms4 07:20 Follow up: IV Status: Completed infusion; IV Intake: 1000ml aa5 03:40 Drug: Zofran (Ondansetron) 4 mg Route: IVP; Site: right antecubital; ms4 03:40 Follow up: Response: No adverse reaction ms4 04:14 Drug: K-Dur (potassium chloride) 40 mEq Route: PO; ms4 04:14 Drug: Potassium Chloride 20 mEq Route: IV; Rate: calculated rate; Site: right ms4 antecubital; 04:24 Drug: fentaNYL (PF) 50 mcg Route: IVP; Site: right antecubital; ms4 04:24 Follow up: Response: No adverse reaction ms4 05:12 Not Given (Physician Discretion): NS 0.9% 1000 ml IV at 125 ml/hr continuous ms4 07:02 Drug: D5-1/2 NS with KCl 20 mEq/L 1000 ml Route: IV; Rate: 150 ml/hr; Site: right ms4 antecubital; 07:30 Follow up: IV Status: Infusion continued upon admission aa5 07:25 Drug: NS 0.9% 1000 ml Route: IV; Rate: 1000 ml; Site: right antecubital; aa5 08:30 Follow up: IV Status: Completed infusion; IV Intake: 1000ml aa5 Disposition Summary: 03/31/21 04:49 Hospitalization Ordered Hospitalization Status: Inpatient Admission pkl Provider: Maninder Fraser pkhussein Condition: Stable pkl Problem: new pkl Symptoms: are unchanged pkl Bed/Room Type: Standard pkl Location: Telemetry/MedSur (Inpatient)(03/31/21 16:49) [facility] Room Assignment: [facility](03/31/21 17:03) Diagnosis - Acute pancreatitis. Hypokalema pkl Forms: - Medication Reconciliation Form pkl - SBAR form pkl Signatures: Dispatcher [employer] EDMS Antonio Lester MD MD pkl Rashmi Buckley RN RN aa5 Ruben Esquivel FNP-C FNP-Blessing1 Timothy Lamas RN RN ja1 Laura Otero Kristen, RN RN kg Kristina To RN RN ms4 Corrections: (The following items were deleted from the chart) 00:05 00:03 PMHx: Hypertensive disorder; kg kg 03:39 03:22 morphine 4 mg IM once; RASS on ADMIN: Combtv4, Very Agttd3, Agttd2, Rstlss1, ms4 AlertClm0, Drwsy-1, Lt Sdtn-2, Mod Sdtn-3, Dp Sdtn-4, UnArsble-5 ordered. pk 09:51 04:49 Telemetry/MedSurg (Inpatient) pk aa5 09:51 04:49 pk aa5 16:49 09:51 [facility] ER HOLD aa5 ja1 16:49 09:51 ERHOLD- aa5 ja1 17:03 16:49 223 ja1 eb
--- NOTE | 2021-03-31 05:07 | P.HP ---
Certification for Inpatient Patient admitted to: Inpatient With expected LOS: >2 Midnights Patient will require the following post-hospital care: None Practitioner: I am a practitioner with admitting privileges, knowledge of patient current condition, hospital course, and medical plan of care. Services: Services provided to patient in accordance with Admission requirements found in Title 42 Section 412.3 of the Code of Federal Regulations Patient History Date of Service: 03/31/21 Reason for admission: Acute pancreatitis History of Present Illness: 40-year-old male with no significant past medical history presents emergency department for abdominal pain. Patient ports ongoing abdominal pain over the course of last 24 to 48 hours. Patient was evaluated in the emergency department labs were significant for hemoglobin 13.5 adequate 38.7 MCV 102.6 platelets 108 sodium 134 potassium 2.3 chloride 93 BUN 6 glucose 124 calcium 8.4T bili 1.4 AST 179 ALT 88 lipase 6908 urinalysis with 20-50 bacteria drug screen positive for THC CT abdomen pelvis demonstrates acute interstitial edematous pancreatitis with a large amount of peripancreatic fluid present without organizing fluid collection or evidence of necrosis at this time, hepatomegaly with steatosis. Patient does admit to drinking alcohol socially on the weekends. Lipid panel/abdominal ultrasound pending. Patient with significant pain refractory to multiple doses of IV narcotic pain medication, also very hypokalemic. Will admit for further evaluation and management. 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 - Family History Mother -: Stroke - Social History Smoking Status: Never smoker Alcohol use: Yes CD- Drugs: Yes Caffeine use: Yes Place of Residence: Home Review of Systems 10-point ROS is otherwise unremarkable General: Malaise Gastrointestinal: Nausea, Vomiting, Abdominal Pain Physical Examination - Physical Exam General: Alert, In no apparent distress, Oriented x3 HEENT: Atraumatic, PERRLA, EOMI, Sclerae nonicteric Neck: Supple, 2+ carotid pulse no bruit, No LAD, Without JVD or thyroid abnormality Respiratory: Clear to auscultation bilaterally, Normal air movement Cardiovascular: Regular rate/rhythm, Normal S1 S2 Gastrointestinal: Normal bowel sounds, No masses, No rebound, No guarding, Tenderness (Moderate epigastric tenderness on exam) Musculoskeletal: No tenderness Integumentary: No rashes Neurological: Normal speech, Normal strength at 5/5 x4 extr, Normal tone, Normal affect - Studies Laboratory Data (last 24 hrs) 03/31/21 01:25: Sodium 134 L, Potassium 2.3 L*, BUN 6 L, Creatinine 0.56, Glucose 124 H, Total Bilirubin 1.4 H, AST 179 H, ALT 88 H, Alkaline Phosphatase 82, Lipase 6908 H 03/31/21 00:10: WBC 4.70, Hgb 13.5 L, Hct 38.7 L, Plt Count 108 L Assessment and Plan - Plan Assessment: Acute pancreatitis likely alcohol related Hypokalemia UDS positive for THC Plan: Acute pancreatitis likely alcohol related: 0 points for Rosalia criteria on admission, patient bolused 2 L normal saline in the emergency department, appears dehydrated and hypokalemic we will continue with half-normal saline +20meq K at 150 cc/h. N.p.o., trend lipase level lipid panel ordered and pending as well as abdominal ultrasound. Patient admits to drinking socially and on the weekends, last drink was yesterday reportedly 1 beer. Anticipate clinical improvement over the course of the next 48 to 72 hours, advance diet as tolerated. Hypokalemia: Potassium protocol in place, IV fluids with potassium infusing. UDS positive for THC: Address lifestyle changes. DVT PPX: Lovenox Code status: Full Discharge Plan: Home Plan to discharge in: Greater than 2 days - Advance Directives Does patient have a Living Will: No Does patient have a Durable POA for Healthcare: No - Code Status/Comfort Care Code Status Assessed: Yes (Full code) Critical Care: No Time Spent Managing Pts Care (In Minutes): 55
[2021-03-31 05:49] VITALS: BMI 29.0
[2021-03-31] MEDS: D5.45NS W/KCL 20MEQ 20 MEQ/1,000 ML BAG IV SCH ×3 (06:00→19:45)
[2021-03-31] MEDS ORDERED: HYDROMORPHONE HCL 1 MG/ML INJ ONE ×4 (06:14→17:10)
[2021-03-31] MEDS ORDERED: CEFTRIAXONE 1 GM/NS 50 ML 1 GM/50 ML BAG IV SCH (06:17)
--- NOTE | 2021-03-31 06:22 | P.PN ---
Subjective Date of Service: 03/31/21 Primary Care Provider: none Chief Complaint: Acute pancreatitis Subjective: Other (he drinks tequila and beer. He last drank yesterday.) Physical Examination - Studies Laboratory Data (last 24 hrs) 03/31/21 01:25: Triglycerides 63, Cholesterol 183, HDL Cholesterol 91 H, Cholesterol/HDL Ratio 2.01 03/31/21 01:25: Sodium 134 L, Potassium 2.3 L*, BUN 6 L, Creatinine 0.56, Glucose 124 H, Total Bilirubin 1.4 H, AST 179 H, ALT 88 H, Alkaline Phosphatase 82, Lipase 6908 H 03/31/21 00:10: WBC 4.70, Hgb 13.5 L, Hct 38.7 L, Plt Count 108 L Assessment & Plan Discharge Plan: Home Plan to discharge in: 72 Hours Physician Review Additional Text: COVID: Negative CT scan: Showed acute interstitial edematous pancreatitis with large amount of peripancreatic fluid without organizing fluid collection or evidence of necrosis. Hepatomegaly secondary to fatty liver noted ABUS: COMPARISON: Abdomen Pelvis W Contrast dated 03/31/2021 FINDINGS: The gallbladder demonstrates no gallstones. No pericholecystic fluid or gallbladder wall thickening. The common bile duct is mildly dilated measuring 8 millimeters. The liver demonstrates no findings of intrahepatic biliary dilatation. IMPRESSION: Negative for cholelithiasis or acute cholecystitis. Mild biliary ductal dilatation with the CBD measuring 8 millimeters. Physical exam: General: Alert, In no apparent distress, Oriented x3 HEENT: Atraumatic, PERRLA, EOMI, Sclerae nonicteric Neck: Supple, 2+ carotid pulse no bruit, No LAD, Without JVD or thyroid abnormality Respiratory: Clear to auscultation bilaterally, Normal air movement Cardiovascular: Regular rate/rhythm, Normal S1 S2 Gastrointestinal: Pain to the epigastric region improved Musculoskeletal: No tenderness Integumentary: No rashes Neurological: Normal speech, Normal strength at 5/5 x4 extr, Normal tone, mild agitation Impression: Epigastric abdominal pain secondary to acute alcoholic pancreatitis Elevated liver function with hyperbilirubinemia likely related to above with mildly dilated common bile duct UTI Hypokalemia Alcohol abuse UDS positive for THC Plan: Epigastric abdominal pain secondary to acute alcoholic pancreatitis: Continue aggressive IV fluids. Will give 1 L bolus now. Continue with maintenance IV fluids. Will provide thiamine, folic acid. Will provide medication for agitation. Will keep the patient n.p.o. Provide medication for pain. Will monitor for alcohol withdrawal. Will obtain MRCP to evaluate dilated common bile duct. Encourage ambulation. Provide incentive spirometer. Antibiotic started for possible underlying UTI. I will turn to service over to the hospitalist team tomorrow. I will go over plan of care with him. Elevated liver function with hyperbilirubinemia likely related to above with mildly dilated common bile duct: Continue as above. Will check MRCP. Will check hepatitis and HIV panel. Will monitor liver function. UTI: Urine and blood cultures obtained. Will start Rocephin. Hypokalemia: Electrolyte protocol in place. Alcohol abuse: Continue folic acid and thiamine. Alcohol cessation addressed in detail. Patient plans to quit. Will monitor for alcohol withdrawal. UDS positive for THC: Address lifestyle modification DVT PPX: Lovenox Code status: Full Discharge Plan: Home Plan to discharge in: Greater than 2 days Time Spent Managing Pts Care (In Minutes): 55
[2021-03-31] MEDS: LORazepam 2 MG/ML VIAL IV PRN ×3 (06:53→17:02)
[2021-03-31] MEDS ORDERED: LORazepam 2 MG/ML VIAL ONE ×2 (07:10→09:47)
[2021-03-31] MEDS ORDERED: D5.45NS W/KCL 20MEQ 1,000 ML IV ONE ×2 (07:11→12:54)
[2021-03-31] MEDS: CEFTRIAXONE/SWI 1gm 1 GM/10 ML SYR IVP SCH (08:00)
[2021-03-31] MEDS: ONDANSETRON 4 MG/2 ML VIAL IV PRN (08:00)
[2021-03-31] MEDS: HYDROMORPHONE HCL 1 MG/ML INJ IV PRN ×4 (08:00→21:39)
[2021-03-31] MEDS ORDERED: NA CHLORIDE 0.9% 1,000 ML IV ONE (08:00)
[2021-03-31] MEDS ORDERED: THIAMINE 200 MG/2 ML INJ ONE (08:24)
[2021-03-31] MEDS ORDERED: ENOXAPARIN 40 MG/0.4 ML SQ ONE (08:24)
[2021-03-31] MEDS ORDERED: FOLIC ACID 5 MG/ML VIAL ONE (08:25)
[2021-03-31] MEDS ORDERED: FAMOTIDINE 20 MG/2 ML VIAL IV ONE (08:25)
[2021-03-31] MEDS ORDERED: CEFTRIAXONE/SWI 1gm 1 GM/10 ML SYR ONE (08:25)
[2021-03-31] MEDS: THIAMINE 200 MG/2 ML INJ IVP SCH (09:00)
[2021-03-31] MEDS: FOLIC ACID 5 MG/ML VIAL IVP SCH (09:00)
[2021-03-31] MEDS: ENOXAPARIN 40 MG/0.4 ML SQ SCH (09:00)
[2021-03-31] MEDS: FAMOTIDINE 20 MG/2 ML VIAL IV SCH ×2 (09:00→21:39)
[2021-03-31] MEDS ORDERED: HYDROMORPHONE HCL 0.5 MG/0.5 ML INJ ONE ×2 (09:48→14:54)
[2021-03-31] MEDS: HYDROMORPHONE HCL 0.5 MG/0.5 ML INJ IV PRN ×4 (10:20→23:48)
--- NOTE | 2021-03-31 11:12 | RAD REPORT ---
EXAM DESCRIPTION: US - Abdomen Exam Limited - 03/31/2021 8:28 am CLINICAL HISTORY: eval gallbladder COMPARISON: Abdomen Pelvis W Contrast dated 03/31/2021 FINDINGS: The gallbladder demonstrates no gallstones. No pericholecystic fluid or gallbladder wall t hickening. The common bile duct is mildly dilated measuring 8 millimeters. The liver demonstrates no findings of intrahepatic biliary dilatation. IMPRESSION: Negative for cholelithiasis or acute cholecystitis. Mild biliary ductal dilatation with the CBD measuring 8 millimeters.
[2021-03-31 14:34] LABS: ALT/SGPT 61 U/L (12-78); AST/SGOT 88 U/L (15-37); Albumin 3.2 g/dL (3.4-5.0); Alkaline Phosphatase 65 U/L (45-117); BUN Blood Urea Nitrogen 3 mg/dL (7-18); Bicarbonate 31 mmol/L (21-32); Bilirubin Total 1.6 mg/dL (0.2-1.0); Glucose Level 117 mg/dL (74-106); Sodium Level 136 mmol/L (136-145)
[2021-03-31 14:36] LABS: Potassium 2.7 mmol/L (3.5-5.1)
[2021-04-01 00:12] LABS: Urine Appearance CLEAR (Clear); Urine Bilirubin NEGATIVE (Negative); Urine Blood NEGATIVE (Negative); Urine Color YELLOW (Yellow); Urine Glucose NEGATIVE (Negative); Urine Protein NEGATIVE (Negative); Urine Specific Gravity <=1.005 (1.005-1.030)
[2021-04-01 00:13] LABS: Urine Microscopic Reflex ORDER UMIC
[2021-04-01] MEDS: LORazepam 2 MG/ML VIAL IV PRN ×3 (00:45→22:06)
[2021-04-01 00:54] LABS: Urine Bacteria <20 /HPF (NONE SEEN); Urine RBC NONE SEEN /HPF (NONE SEEN)
[2021-04-01] MEDS: D5.45NS W/KCL 20MEQ 20 MEQ/1,000 ML BAG IV SCH ×3 (02:17→17:20)
[2021-04-01] MEDS: HYDROMORPHONE HCL 1 MG/ML INJ IV PRN ×4 (03:35→21:02)
[2021-04-01] MEDS: HYDROMORPHONE HCL 0.5 MG/0.5 ML INJ IV PRN ×3 (05:45→23:10)
[2021-04-01] MEDS: CEFTRIAXONE/SWI 1gm 1 GM/10 ML SYR IVP SCH (05:46)
[2021-04-01 06:26] LABS: Absolute Lymphocytes (CBC) 1.1 K/uL (0.7-4.9); Basophils % 0.5 % (0-1.3); Hematocrit 34.7 % (39.6-49.0); Lymphocytes % 23.9 % (15.3-44.8); MPV 10.2 fL (7.6-11.3); RBC Red Blood Cell Count 3.36 M/uL (4.33-5.43)
[2021-04-01 06:58] LABS: ALT/SGPT 48 U/L (12-78); AST/SGOT 59 U/L (15-37); Alkaline Phosphatase 63 U/L (45-117); BUN Blood Urea Nitrogen 2 mg/dL (7-18); Bicarbonate 33 mmol/L (21-32); Bilirubin Total 1.7 mg/dL (0.2-1.0); Glucose Level 95 mg/dL (74-106); Lipase 2275 U/L (73-393); Potassium 3.2 mmol/L (3.5-5.1); Protein, Total 5.8 g/dL (6.4-8.2); Sodium Level 136 mmol/L (136-145)
[2021-04-01] MEDS ORDERED: Magnesium Sulfate 2gm IVPB 2 G/50 ML BAG IV ONE ×2 (07:07→07:09)
[2021-04-01 07:08] LABS: Magnesium 0.9 mg/dL (1.8-2.4)
--- NOTE | 2021-04-01 08:43 | RAD REPORT ---
EXAM DESCRIPTION: MRICholangiogram04/01/2021 8:25 am CLINICAL HISTORY: Abdominal pain COMPARISON: March 31, 2021 cat scan and ultrasound TECHNIQUE: Magnetic resonance cholangiogram was performed.3D MIP reconstruction performed FINDINGS: Suboptimal examination secondary to respiratory motion artifact. A filling defect within the gallbladder is not seen Mild dilatation of the common bile duct. The gross filling defect is not seen. Pancreatic duct is normal caliber. The pancreas is inhomogeneous with stranding in the peripancreatic fat, enlargement of the pancreatic tail and small amount of fluid within the pararenal spaces and le sser sac IMPRESSION: Pancreatitis Mild dilatation of the common bile duct. A gross stone not visualized. Examination is somewhat limite d
[2021-04-01] MEDS: FOLIC ACID 5 MG/ML VIAL IVP SCH (09:00)
[2021-04-01] MEDS: ENOXAPARIN 40 MG/0.4 ML SQ SCH (09:00)
[2021-04-01] MEDS: THIAMINE 200 MG/2 ML INJ IVP SCH (09:09)
[2021-04-01] MEDS: FAMOTIDINE 20 MG/2 ML VIAL IV SCH ×2 (09:09→21:05)
[2021-04-01 09:10] LABS: Blood Morphology Comment NOT SEEN (NOT SEEN); Platelet Estimate DECR
--- NOTE | 2021-04-01 11:56 | RAD REPORT ---
EXAM DESCRIPTION: CT - Abdomen Pelvis W Contrast - 03/31/2021 7:10 am COMPARISON: None. CLINICAL HISTORY: ABD PAIN TECHNIQUE: CT of the abdomen and pelvis was acquired with IV contrast material. Coronal and sagitt al reconstructions were obtained. Automated exposure control was utilized on this examination as a dose lowering technique. FINDINGS: Lung bases: Clear. Liver: Enlarged measuring 18.8 cm midclavicular line with steatosis. Gallbladder and biliary: Normal gallbladder. Unremarkable biliary tree. Pancreas: There is severe peripancreatic edema, layering along the retroperitoneum. Spleen: Normal. Adrenal glands: Normal adrenal glands. Kidneys: Normal kidneys Stomach and Small Bowel: The stomach is normal. Mild proximal small bowel wall thickening is likely r eactive to adjacent pancreatitis. Urinary bladder: Normal. Prostate/Male Urogenital: Normal. Colon and Appendix: The colon is unremarkable. No evidence of appendicitis. Retroperitoneum and lymph nodes: Normal. Vascular: Mild atherosclerosis. Peritoneal cavity: Peripancreatic, retroperitoneal, and abdominal fluid is present. Musculoskeletal and soft tissues: Soft tissues are unremarkable. No aggressive bone lesions. No com pression fracture. IMPRESSION: 1. Acute interstitial edematous pancreatitis. A large amount of peripancreatic fluid is present without organizing fluid collection or evidence of necrosis at this time. 2. Hepatomegaly with steatosis. Electronically signed by: Shaheed Walker MD 03/31/2021 4:09 AM CDT Due to temporary technical issues with the PACS/Fluency reporting system, reports are being signed by the in house radiologist without review as a courtesy to ensure prompt reporting. The interpreting r adiologist is fully responsible for the content of the report.
[2021-04-01] MEDS ORDERED: chlordiazePOXIDE HCl 5 MG CAP PO SCH (14:00)
[2021-04-01] MEDS ORDERED: POTASSIUM CL SA 10 MEQ TAB PO ONE ×2 (14:00→22:13)
--- NOTE | 2021-04-01 15:42 | P.PN ---
Subjective Date of Service: 04/01/21 Primary Care Provider: none Chief Complaint: Acute pancreatitis Subjective: Tolerating diet, Ambulating, Improving <Chaz Velásquez - Last Filed: 04/01/21 15:59> Date of Service: 04/01/21 <Zoe Cunningham - Last Filed: 04/08/21 09:23> Review of Systems General: Unremarkable Eyes: Unremarkable ENT: Unremarkable Respiratory: Unremarkable Cardiovascular: Unremarkable Gastrointestinal: Abdominal Pain Genitourinary: Unremarkable Musculoskeletal: Unremarkable Integumentary: Unremarkable Other: Tremors, anxiety <Chaz Velásquez - Last Filed: 04/01/21 15:59> Physical Examination - Vital Signs Temperature: 98.9 F Blood Pressure: 127/86 Pulse: 113 Respirations: 16 Pulse Ox (%): 95 - Physical Exam General: Alert, In no apparent distress HEENT: Atraumatic, PERRLA, EOMI Neck: Supple, JVD not distended Respiratory: Clear to auscultation bilaterally, Normal air movement Cardiovascular: Regular rate/rhythm, Normal S1 S2 Capillary refill: <2 Seconds Gastrointestinal: Normal bowel sounds, No tenderness Musculoskeletal: No tenderness Integumentary: No rashes Neurological: Normal speech, Normal tone, Normal affect Lymphatics: No axilla or inguinal lymphadenopathy External genitalia: Deferred Rectal: Deferred <Chaz Velásquez - Last Filed: 04/01/21 15:59> Assessment & Plan Discharge Plan: Home Plan to discharge in: 24 Hours - Code Status/Comfort Care Code Status Assessed: Yes Code Status: Full Code Physician Review: Patient Assessed, Agree with Above Assessment and Plan Physician Review Additional Text: Epigastric abdominal pain secondary to acute alcoholic pancreatitis: Continue aggressive IV fluids. Continue with maintenance IV fluids. Continue thiamine, folic acid. Will provide medication for agitation. Patient started on clear liquid diet Will monitor for alcohol withdrawal. MRCP indicates Mild dilatation of the common bile duct. A gross stone not visualized. GI MD consulted. Encourage ambulation. Provide incentive spirometer. Elevated liver function with hyperbilirubinemia likely related to above with mildly dilated common bile duct: Continue as above. Will check hepatitis and HIV panelpending. Will monitor liver function. Stratigraphy Teacher on board. Acute pancreatitis. Lipase trending down. Will reassess lipase in am. Continue IV hydration UTI: Urine and blood cultures obtained. [place] count <10,000 . Antibiotics DCed by attending MD . Hypokalemia: Electrolyte protocol in place. Hypomagnesemia. Electrolyte protocol in place. Alcohol abuse: Continue folic acid and thiamine. Alcohol cessation addressed in detail. Patient plans to quit. Will monitor for alcohol withdrawal. UDS positive for THC: Address lifestyle modification DVT PPX: Lovenox Code status: Full Discharge Plan: Home <ElizabetholgaitzChaz Itz - Last Filed: 04/01/21 15:59> - Problems (Diagnosis) (1) Alcoholic pancreatitis Status: Acute (2) Delirium tremens Status: Acute <Zoe Cunningham - Last Filed: 04/08/21 09:23> Date of Service: 04/01/21 Subjective Agree with findings as mentioned above Review of Systems is unable to be obtained Physical Examination - Vital Signs reviewed - Physical Exam General: Awake, alert, oriented to person place and time Respiratory: Clear to auscultation bilaterally, Normal air movement Cardiovascular: Other (Tachycardic) Gastrointestinal: Normal bowel sounds, Soft and benign, Non-distended Musculoskeletal: No clubbing, No swelling Neurological: Oriented to person place and time Assessment & Plan - Problems (Diagnosis) (1) Alcoholic pancreatitis Current Visit: Yes Status: Acute (2) Delirium tremens Current Visit: Yes Status: Acute - Plan Continue plan of care as mentioned <Zoe Cunningham - Last Filed: 04/08/21 09:23>
[2021-04-01 16:52] LABS: Phosphorus 1.7 mg/dL (2.5-4.9); Potassium 3.1 mmol/L (3.5-5.1)
[2021-04-01] MEDS ORDERED: POTASSIUM 25 MEQ EFFERV TAB PO ONE (17:00)
[2021-04-01 17:15] LABS: ALT/SGPT 45 U/L (12-78); AST/SGOT 59 U/L (15-37); Albumin 2.9 g/dL (3.4-5.0); Alkaline Phosphatase 64 U/L (45-117); BUN Blood Urea Nitrogen 2 mg/dL (7-18); Bicarbonate 32 mmol/L (21-32); Bilirubin Total 1.4 mg/dL (0.2-1.0); Glucose Level 100 mg/dL (74-106); Lipase 1550 U/L (73-393); Potassium 3.1 mmol/L (3.5-5.1); Protein, Total 5.8 g/dL (6.4-8.2); Sodium Level 136 mmol/L (136-145)
[2021-04-01] MEDS: ONDANSETRON 4 MG/2 ML VIAL IV PRN (17:20)
[2021-04-01] MEDS ORDERED: POTASS/SODIUM PHOSPHATE 1 PKT POWD.PACK PO SCH (18:00)
[2021-04-01] MEDS: chlordiazePOXIDE HCl 5 MG CAP PO SCH ×2 (18:17→23:10)
[2021-04-01] MEDS: METOPROLOL TAR 25 MG TAB PO SCH (18:17)
--- NOTE | 2021-04-01 19:58 | CON ---
Reason For Consultation: Acute pancreatitis. History Of Presenting Illness: The patient is a 40-year-old gentleman with longstanding history of a lcohol use, but no prior history of pancreatitis. He does state that he has had on and off abdominal pain before, but never to this extent. He came to the ER with 2 days of severe abdominal pain, naus ea, and vomiting, diagnosed with acute pancreatitis, lipase of 6900. Also found to have cannabis in the urine. Was admitted. When I saw the patient today, he feels much better. He is able to tolerat e clear liquids. Allergies: TO CODEINE. Past Medical History: None. Past Surgical History: None. Social History: Active alcohol use. Denies any drugs except for marijuana. Family History: Noncontributory. Review of Systems: GI: As in HPI, otherwise negative. Remainder of 10-point review of system is negative. Physical Examination: Vital Signs: Reviewed. Currently, he is normotensive, not tachycardic, not tachypneic, afebrile. HEENT: Head atraumatic, normocephalic. Pupils equally reactive. Neck: Supple. Chest: Clear to auscultation bilaterally. Abdomen: Soft, nontender, and nondistended. Bowel sounds present. Extremities: No pedal edema. Laboratory Data: Reviewed. Lipase has improved to 2200. At this time, AST mildly elevated at 59. He had an MRCP, which showed minimal bile duct dilation, but no stones. Also, CT showed pancreatitis . Impression: 40-year-old gentleman with acute pancreatitis secondary to alcohol consumption, appears to be improving. Continue current management, fluids. Advance diet as tolerated. The patient will need complete cessation of alcohol. I discussed this with the patient in detail, may lead to chronic pancreatitis. He also may have already developed underlying liver disease given the low platelets a nd elevated AST suggesting cirrhosis. No active intervention from GI at this time. US/MODL Voice ID: [id number] Report ID: [id number]
[2021-04-02] MEDS: D5.45NS W/KCL 20MEQ 20 MEQ/1,000 ML BAG IV SCH ×5 (01:03→17:59)
[2021-04-02] MEDS: HYDROMORPHONE HCL 1 MG/ML INJ IV PRN ×3 (01:53→21:57)
[2021-04-02] MEDS: METOPROLOL TAR 25 MG TAB PO SCH ×2 (05:08→17:58)
[2021-04-02] MEDS: chlordiazePOXIDE HCl 5 MG CAP PO SCH ×2 (05:08→12:00)
[2021-04-02 06:22] LABS: Basophils % 0.6 % (0-1.3); Hematocrit 35.9 % (39.6-49.0); Lymphocytes % 22.6 % (15.3-44.8); MPV 10.2 fL (7.6-11.3); RBC Red Blood Cell Count 3.42 M/uL (4.33-5.43)
[2021-04-02 06:36] LABS: BUN Blood Urea Nitrogen 3 mg/dL (7-18); Bicarbonate 29 mmol/L (21-32); Glucose Level 89 mg/dL (74-106); Magnesium 1.9 mg/dL (1.8-2.4); Phosphorus 1.4 mg/dL (2.5-4.9); Potassium 3.7 mmol/L (3.5-5.1); Sodium Level 136 mmol/L (136-145)
[2021-04-02 08:18] LABS: ALT/SGPT 45 U/L (12-78); AST/SGOT 50 U/L (15-37); Albumin 3.2 g/dL (3.4-5.0); Alkaline Phosphatase 73 U/L (45-117); Bilirubin Total 1.4 mg/dL (0.2-1.0); Lipase 1922 U/L (73-393); Protein, Total 6.4 g/dL (6.4-8.2)
[2021-04-02] MEDS: ENOXAPARIN 40 MG/0.4 ML SQ SCH (08:59)
[2021-04-02] MEDS: THIAMINE 200 MG/2 ML INJ IVP SCH (09:00)
[2021-04-02] MEDS: FOLIC ACID 5 MG/ML VIAL IVP SCH (09:00)
[2021-04-02] MEDS ORDERED: POTASSIUM CL SA 10 MEQ TAB PO ONE (09:00)
[2021-04-02] MEDS: FAMOTIDINE 20 MG/2 ML VIAL IV SCH ×2 (09:00→21:50)
[2021-04-02] MEDS: FOLIC ACID 1 MG in NA CHLORIDE 0.9% 50 ML IV SCH (10:00)
[2021-04-02] MEDS: LORazepam 2 MG/ML VIAL IV PRN (10:30)
[2021-04-02] MEDS ORDERED: ZIPRASIDONE MESYLA 20 MG/VIAL IM ONE (12:20)
[2021-04-02] MEDS ORDERED: WATER FOR INJ,STERILE 10 ML ONE (12:26)
[2021-04-02] MEDS: LORazepam 2 MG/ML VIAL IM ONE ×2 (12:28→14:39)
[2021-04-02] MEDS: chlordiazePOXIDE HCl 25 MG CAP PO SCH (17:58)
[2021-04-02] MEDS: ZIPRASIDONE 20 MG CAP PO SCH (21:50)
[2021-04-03] MEDS: D5.45NS W/KCL 20MEQ 20 MEQ/1,000 ML BAG IV SCH ×4 (00:55→19:37)
[2021-04-03] MEDS: HYDROMORPHONE HCL 1 MG/ML INJ IV PRN ×4 (04:14→20:36)
[2021-04-03] MEDS: HYDROMORPHONE HCL 0.5 MG/0.5 ML INJ IV PRN (05:40)
[2021-04-03] MEDS: METOPROLOL TAR 25 MG TAB PO SCH ×2 (05:42→17:16)
[2021-04-03] MEDS: chlordiazePOXIDE HCl 25 MG CAP PO SCH ×6 (06:00→20:26)
[2021-04-03 06:30] LABS: Absolute Lymphocytes (CBC) 1.2 K/uL (0.7-4.9); Basophils % 0.8 % (0-1.3); Hematocrit 33.3 % (39.6-49.0); Lymphocytes % 27.2 % (15.3-44.8); MPV 9.5 fL (7.6-11.3); RBC Red Blood Cell Count 3.15 M/uL (4.33-5.43)
[2021-04-03 06:43] LABS: ALT/SGPT 37 U/L (12-78); AST/SGOT 43 U/L (15-37); Albumin 2.9 g/dL (3.4-5.0); Alkaline Phosphatase 66 U/L (45-117); BUN Blood Urea Nitrogen 3 mg/dL (7-18); Bicarbonate 27 mmol/L (21-32); Glucose Level 105 mg/dL (74-106); Lipase 1117 U/L (73-393); Magnesium 1.8 mg/dL (1.8-2.4); Protein, Total 5.9 g/dL (6.4-8.2); Sodium Level 140 mmol/L (136-145)
[2021-04-03] MEDS: FOLIC ACID 1 MG in NA CHLORIDE 0.9% 50 ML IV SCH (08:45)
[2021-04-03] MEDS: ZIPRASIDONE 20 MG CAP PO SCH ×2 (08:46→20:26)
[2021-04-03] MEDS: THIAMINE 200 MG/2 ML INJ IVP SCH (08:46)
[2021-04-03] MEDS: FAMOTIDINE 20 MG/2 ML VIAL IV SCH ×2 (08:46→20:27)
[2021-04-03] MEDS: ENOXAPARIN 40 MG/0.4 ML SQ SCH (08:46)
[2021-04-03] MEDS: HYDROCODONE/APAP 10/325 TAB PO PRN ×2 (09:03→23:37)
[2021-04-03 09:56] LABS: Anisocytosis 1+; Blood Morphology Comment NOTED (NOT SEEN); Platelet Estimate DECR; White Blood Cell Scan OK (OK)
[2021-04-03 09:57] LABS: Macrocytosis 1+
[2021-04-03] MEDS ORDERED: NA CHLORIDE 0.9% 1,000 ML IV ONE (11:20)
--- NOTE | 2021-04-03 11:25 | P.PN ---
Subjective Date of Service: 04/02/21 Patient gone into full-blown DTs. Patient is severely altered. Patient is confused. Patient has gone outside of the hospital on 2 different occasions and the 1st time had to bring back by DIANA. 2nd time he was given Geodon 20mg prior to leaving the hospital. He went to his mother's car and tried to close the door but we kept it open. He sprayed RAID on us. He finally got sleepy and we were able to get him into the wheelchair with the assistance of his family and brought him back to his room. He is currently sleeping. Will schedule his medications a little more frequently and hopefully we can get him turned around. His pancreatitis seems to be improved as he is having very minimal pain. Please been off of IV fluids as he ripped his IV out. Will bolus some IV fluids in get him better hydrated. Review of Systems is unable to be obtained Physical Examination - Vital Signs Temperature: 98.1 F Blood Pressure: 121/77 Pulse: 77 Respirations: 16 Pulse Ox (%): 100 - Physical Exam General: Confused Respiratory: Clear to auscultation bilaterally, Normal air movement Cardiovascular: Other (Tachycardic) Gastrointestinal: Normal bowel sounds, Soft and benign, Non-distended Musculoskeletal: No clubbing, No swelling Neurological: Other (Altered mentation but otherwise strength is appropriate) - Studies Microbiology Data (last 24 hrs): 03/31/21 01:30 Clean Catch Urine [place] Count - Final BETWEEN 10,000 & 100,000 CFU/ML 03/31/21 01:30 Clean Catch Urine - Final MIXED LYLA. Assessment & Plan - Problems (Diagnosis) (1) Alcoholic pancreatitis Current Visit: Yes Status: Acute (2) Delirium tremens Current Visit: Yes Status: Acute - Plan 1. Continue with IV hydration 2. Continue with IV Ativan and Librium orally along with BURTON done orally 3. Continue with pain control 4. NPO 5. GI consultation appreciated 6. Serial H&H, and we will monitor CBC, BMP, LFTs and lipase along with electrolytes. 7. Bed check his in place 8. GI and DVT prophylaxis Discharge Plan: Home Plan to discharge in: Greater than 2 days - Advance Directives Does patient have a Living Will: No Does patient have a Durable POA for Healthcare: No - Code Status/Comfort Care Code Status: Full Code Physician Review: Patient Assessed, Agree with Above Assessment and Plan Critical Care: No Time Spent Managing PTS Care (In Minutes): 90
--- NOTE | 2021-04-03 11:27 | P.PN ---
Date of Service: 04/03/21 Subjective Patient is doing well with no new complaints. Clinical symptoms are stable. Patient confusion is much improved Review of Systems is unable to be obtained Physical Examination - Vital Signs reviewed - Physical Exam General: Awake, alert, oriented to person place and time Respiratory: Clear to auscultation bilaterally, Normal air movement Cardiovascular: Other (Tachycardic) Gastrointestinal: Normal bowel sounds, Soft and benign, Non-distended Musculoskeletal: No clubbing, No swelling Neurological: Oriented to person place and time Assessment & Plan - Problems (Diagnosis) (1) Alcoholic pancreatitis Current Visit: Yes Status: Acute (2) Delirium tremens Current Visit: Yes Status: Acute - Plan Continue plan of care as mentioned below: 1. Continue with gentle IV hydration 2. Continue Librium orally along with BURTON done orally 3. Continue with pain control as needed-improved 4. Advancing diet 5. GI consultation appreciated 6. Serial H&H, and we will monitor CBC, BMP, LFTs and lipase along with electrolytes. 7. Bed check his in place 8. GI and DVT prophylaxis
[2021-04-03 15:41] LABS: HIV AG/AB 4TH GEN Non-reactive (Non-reactive)
[2021-04-03] MEDS: NICOTINE 21 MG/PAT TD SCH (17:17)
[2021-04-03 18:35] LABS: HBsAG Nonreactive (Nonreactive)
[2021-04-04] MEDS: HYDROMORPHONE HCL 1 MG/ML INJ IV PRN ×3 (00:41→09:33)
[2021-04-04] MEDS: chlordiazePOXIDE HCl 25 MG CAP PO SCH ×3 (00:45→09:35)
[2021-04-04] MEDS: D5.45NS W/KCL 20MEQ 20 MEQ/1,000 ML BAG IV SCH ×2 (04:43→09:48)
[2021-04-04] MEDS: METOPROLOL TAR 25 MG TAB PO SCH (06:19)
[2021-04-04 07:07] LABS: Absolute Lymphocytes (CBC) 1.3 K/uL (0.7-4.9); Basophils % 1.2 % (0-1.3); Hematocrit 36.9 % (39.6-49.0); Lymphocytes % 28.8 % (15.3-44.8); MPV 9.4 fL (7.6-11.3); RBC Red Blood Cell Count 3.46 M/uL (4.33-5.43)
[2021-04-04 07:22] LABS: ALT/SGPT 39 U/L (12-78); AST/SGOT 47 U/L (15-37); Albumin 3.3 g/dL (3.4-5.0); Alkaline Phosphatase 77 U/L (45-117); BUN Blood Urea Nitrogen 2 mg/dL (7-18); Bicarbonate 28 mmol/L (21-32); Bilirubin Total 0.9 mg/dL (0.2-1.0); Glucose Level 96 mg/dL (74-106); Lipase 851 U/L (73-393); Magnesium 1.7 mg/dL (1.8-2.4); Protein, Total 6.7 g/dL (6.4-8.2); Sodium Level 140 mmol/L (136-145)
[2021-04-04] MEDS: ENOXAPARIN 40 MG/0.4 ML SQ SCH (09:00)
[2021-04-04] MEDS: FOLIC ACID 1 MG in NA CHLORIDE 0.9% 50 ML IV SCH (09:33)
[2021-04-04] MEDS: NICOTINE 21 MG/PAT TD SCH (09:34)
[2021-04-04] MEDS: FAMOTIDINE 20 MG/2 ML VIAL IV SCH (09:34)
[2021-04-04] MEDS: ZIPRASIDONE 20 MG CAP PO SCH (09:35)
[2021-04-04] MEDS: THIAMINE 200 MG/2 ML INJ IVP SCH (09:35)
[2021-04-04 11:50] VITALS: BP 121/79; TEMP 97
[2021-04-04 12:09] VITALS: O2SAT 100
--- NOTE | 2021-04-08 09:50 | P.DS ---
Discharge Date: 04/04/21 Primary Care Provider: none Disposition: ROUTINE DISCHARGE Discharge Condition: GOOD Reason for Admission: Acute pancreatitis - Problems (1) Alcoholic pancreatitis Status: Resolved (2) Delirium tremens Status: Acute Brief History of Present Illness: 40-year-old male with no significant past medical history presents emergency department for abdominal pain. Patient ports ongoing abdominal pain over the course of last 24 to 48 hours. Patient was evaluated in the emergency department labs were significant for hemoglobin 13.5 adequate 38.7 MCV 102.6 platelets 108 sodium 134 potassium 2.3 chloride 93 BUN 6 glucose 124 calcium 8.4T bili 1.4 AST 179 ALT 88 lipase 6908 urinalysis with 20-50 bacteria drug screen positive for THC CT abdomen pelvis demonstrates acute interstitial edematous pancreatitis with a large amount of peripancreatic fluid present without organizing fluid collection or evidence of necrosis at this time, hepatomegaly with steatosis. Patient does admit to drinking alcohol socially on the weekends. Lipid panel/abdominal ultrasound pending. Patient with significant pain refractory to multiple doses of IV narcotic pain medication, also very hypokalemic. Will admit for further evaluation and management. Hospital Course: Patient gone into delirium tremens. We manage as appropriately. Patient is doing better. Spoke with family and their here to pick the patient up. At this time patient is doing well with stable for discharge home. Initial follow up and will refrain from alcohol abuse. Vital Signs/Physical Exam: Temp Pulse Resp BP Pulse Ox 97.0 F 77 16 121/79 99 04/04/21 11:49 04/04/21 11:49 04/04/21 11:49 04/04/21 11:49 04/04/21 11:49 General: Alert, In no apparent distress, Oriented x3 Laboratory Data at Discharge: WBC 4.40 K/uL (4.3-10.9) 04/04/21 06:50 Hgb 12.5 g/dL (13.6-17.9) L 04/04/21 06:50 Hct 36.9 % (39.6-49.0) L 04/04/21 06:50 Plt Count 163 K/uL (152-406) D 04/04/21 06:50 Sodium 140 mmol/L (136-145) 04/04/21 06:50 Potassium 4.0 mmol/L (3.5-5.1) 04/04/21 06:50 BUN 2 mg/dL (7-18) L 04/04/21 06:50 Creatinine 0.45 mg/dL (0.55-1.3) L 04/04/21 06:50 Glucose 96 mg/dL (74-106) 04/04/21 06:50 Phosphorus 1.4 mg/dL (2.5-4.9) L 04/02/21 05:56 Magnesium 1.7 mg/dL (1.8-2.4) L 04/04/21 06:50 Total Bilirubin 0.9 mg/dL (0.2-1.0) 04/04/21 06:50 AST 47 U/L (15-37) H 04/04/21 06:50 ALT 39 U/L (12-78) 04/04/21 06:50 Alkaline Phosphatase 77 U/L (45-117) 04/04/21 06:50 Triglycerides 63 mg/dL (<150) 03/31/21 01:25 Cholesterol 183 mg/dL (<200) 03/31/21 01:25 HDL Cholesterol 91 mg/dL (40-60) H 03/31/21 01:25 Cholesterol/HDL Ratio 2.01 03/31/21 01:25 Lipase 851 U/L (73-393) H 04/04/21 06:50 Home Medications: Hydrocodone 7.5/APAP 325 [[place] 7.5/325 mg] 1 tab PO Q6H PRN #30 tab 04/04/21 Metoprolol Tartrate [Lopressor*] 25 mg PO BID 6AM 6PM #60 tab 04/04/21 chlordiazePOXIDE HCl [Chlordiazepoxide HCl] 10 mg PO Q8H #60 capsule 04/04/21 New Medications: chlordiazePOXIDE HCl [Chlordiazepoxide HCl] 10 mg PO Q8H #60 capsule Metoprolol Tartrate [Lopressor*] 25 mg PO BID 6AM 6PM #60 tab Hydrocodone 7.5/APAP 325 [[place] 7.5/325 mg] 1 tab PO Q6H PRN #30 tab PRN Reason: Pain Physician Discharge Instructions: -OK TO DC IV AND DC HOME -FOLLOW-UP WITH PCP IN 1-2 WEEKS -FOLLOW-UP WITH [employer] M[employer] [facility]er in 2-4 weeks -PLEASE MAKE SURE ALL DIAGNOSTIC STUDIES ARE AVAILABLE AND HAVE BEEN REVIEWED WITH PATIENT PRIOR TO DISCHARGE -RETURN TO THE ER IF symptoms worsen -CALL DR. GOLDSMITH AT [phone] IF ANY QUESTIONS REGARDING HOSPITAL STAY -PLEASE CALL THE FLOOR AT [phone] IF ANY MEDICATION OR NURSING QUESTIONS Diet: AHA Activity: Fall precautions Followup: NONE,NONE [Primary Care Provider] - Time spent managing pt's care (in minutes): 35
== END 2021-04-04 10:55 | disposition home or self-care (01) | DRG 439 ==
LOC: ER 23:52 → ERHOLD 03-31 05:13 → 2ND 03-31 17:56
PROVIDERS: ADMIT Family Medicine; ATTEND Family Medicine
DX: K85.20 Alcohol induced acute pancreatitis without necrosis or infection (principal); F10.231 Alcohol dependence with withdrawal delirium; N39.0 Urinary tract infection, site not specified; E87.6 Hypokalemia; E83.42 Hypomagnesemia; F12.90 Cannabis use, unspecified, uncomplicated; Z20.822 Contact with and (suspected) exposure to COVID-19
CPT/HCPCS: 36415; 74177; 74181; 76705; 80048; 80053; 80061; 80074; 80076; 80307; 81003; 81015; 82040; 82247; 83690; 83735; 84075; 84100; 84132; 84155; 84439; 84443; 84450; 84460; 85025; 87040; 87086; 87088; 87389; 94010; 96361; 96374; 96375; 99285; J0696; J1170; J1650; J2405; J3010; J3411; J3475; J3480; J3486; J7030; Q9967; U0003

== ENCOUNTER 2022-08-29 15:59 | Emergency (ER) | payer SELFPAY ==
--- NOTE | 2022-08-29 17:03 | ER ---
Nurse's Notes [facility] Name: Rickie Bailey Age: 42 yrs Sex: Male : 1980 Arrival Date: 08/29/2022 Time: 16:00 Bed IW1 Private MD: Diagnosis: Cellulitis of right axilla;Cutaneous abscess of right axilla Presentation: 08/29 16:24 Chief complaint: Patient states: abscess to right upper arm x4 days that began draining kb3 today. Coronavirus screen: Vaccine status: Patient reports being unvaccinated. Client indicates they have traveled out of the [place] in the last 14 days. Client traveled to: [place]. Ebola Screen: Patient negative for fever greater than or equal to 101.5 degrees Fahrenheit, and additional compatible Ebola Virus Disease symptoms Patient denies exposure to infectious person. Patient denies travel to an Ebola-affected area in the 21 days before illness onset. Initial Sepsis Screen: Does the patient meet any 2 criteria? No. Patient's initial sepsis screen is negative. Does the patient have a suspected source of infection? No. Patient's initial sepsis screen is negative. Risk Assessment: Do you want to hurt yourself or someone else? Patient reports no desire to harm self or others. Onset of symptoms was August 25, 2022. 16:24 Method Of Arrival: Ambulatory 3 16:24 Acuity: ABRIL 3 kb3 Triage Assessment: 16:27 General: Appears in no apparent distress. Behavior is calm, cooperative. Pain: kb3 Complains of pain in right bicep Pain does not radiate. Pain currently is 4 out of 10 on a pain scale. Derm: Abscess located on right bicep. Historical: - Allergies: 16:27 Codeine; kb3 - Home Meds: 16:27 diclofenac sodium 100 mg oral Tb24 1 tab 2 times per day [Active]; kb3 - PMHx: 16:27 heart palpitations; kb3 - PSHx: 16:27 None; kb3 - Immunization history:: Adult Immunizations up to date, Client reports having NOT received the Covid vaccine. Last tetanus immunization: > 10 years ago. - Social history:: Smoking status: Patient reports the use of cigarette tobacco products, denies chronic smoking, but will smoke occasionally. Screenin:30 [facility] ED Fall Risk Assessment (Adult) History of falling in the last 3 months, kb3 including since admission No falls in past 3 months (0 pts) Confusion or Disorientation No (0 pts) Intoxicated or Sedated No (0 pts) Impaired Gait No (0 pts) Mobility Assist Device Used No (0 pt) Altered Elimination No (0 pt) Score/Fall Risk Level 0 - 2 = Low Risk Oriented to surroundings, Maintained a safe environment, Educated pt \T\ family on fall prevention, incl call for assistance when getting out of bed, Assessed \T\ reinforced patient's understanding of fall precautions, Provided non-skid footwear, Hourly rounding (assess needs \T\ fall precautionary measures) done, Used ambulatory aids as needed (educated on \T\ assisted with), Used gait belt as appropriate. Abuse screen: Denies threats or abuse. Denies injuries from another. Nutritional screening: No deficits noted. Tuberculosis screening: No symptoms or risk factors identified. Assessment: 16:30 General: see triage note. kb3 16:30 Derm: Abscess located on right bicep is with 5cm surrounding area of redness. kb3 Vital Signs: 16:24 BP 117 / 95; Pulse 121; Resp 20; Temp 99.0; Pulse Ox 98% ; Weight 74.84 kg; Height 6 kb3 ft. 0 in. (182.88 cm); Pain 4/10; 16:24 Body Mass Index 22.38 (74.84 kg, 182.88 cm) kb3 ED Course: 16:00 Patient arrived in ED. am2 16:15 Andrés Newsome DO is Attending Physician. ms3 16:27 Triage completed. kb3 16:27 Arm band placed on left wrist. kb3 16:30 Patient has correct armband on for positive identification. kb3 16:30 No provider procedures requiring assistance completed. Patient did not have IV access kb3 during this emergency room visit. 17:01 Saul Conklin DO is Referral Physician. ms3 18:04 Kathy Stone, BARBARA is Primary Nurse. kb3 Administered Medications: No medications were administered Medication: 16:30 VIS not applicable for this client. kb3 Outcome: 17:02 Discharge ordered by . ms3 17:30 Discharged to home ambulatory. kb3 17:30 Condition: stable kb3 17:30 Discharge instructions given to patient, Instructed on discharge instructions, follow up and referral plans. medication usage, Demonstrated understanding of instructions, follow-up care, medications, Prescriptions given X 2. 18:06 Patient left the ED. kb3 Signatures: Antionette Greene am2 Andrés Newsome DO DO ms3 Kathy Stone, RN RN kb3 Corrections: (The following items were deleted from the chart) 16:28 16:27 Allergies: KNDA; kb3 kb3 16:28 16:27 Home Meds: carvedilol 12.5 mg Oral tab 1 tab 2 times per day; kb3 kb3
--- NOTE | 2022-08-29 17:03 | EDPHYS ---
Physician Documentation [facility] Name: Rickie Bailey Age: 42 yrs Sex: Male : 1980 Arrival Date: 08/29/2022 Time: 16:00 Bed IW1 Private MD: ED Physician Andrés Newsome HPI: 08/29 17:01 This 42 yrs old Male presents to ER via Ambulatory with complaints of Abscess - right ms3 inner arm, Skin Problem. 17:01 42-year-old male with past medical history of heart palpitations presents for abscess ms3 to right axilla that occurred 3 days prior to arrival. Patient states he initially noticed a pimple in his axilla. Patient states the pain is a 3/10 and aching. Patient states the pain is worse with movement of his right arm. Patient notes the area began draining today.. Historical: - Allergies: 16:27 Codeine; kb3 - Home Meds: 16:27 diclofenac sodium 100 mg oral Tb24 1 tab 2 times per day [Active]; kb3 - PMHx: 16:27 heart palpitations; kb3 - PSHx: 16:27 None; kb3 - Immunization history:: Adult Immunizations up to date, Client reports having NOT received the Covid vaccine. Last tetanus immunization: > 10 years ago. - Social history:: Smoking status: Patient reports the use of cigarette tobacco products, denies chronic smoking, but will smoke occasionally. ROS: 17:01 Constitutional: Negative for fever, and chills. Cardiovascular: Negative for chest ms3 pain, and palpitations. Respiratory: Negative for shortness of breath, cough, wheezing, and pleuritic chest pain, Abdomen/GI: Negative for abdominal pain, nausea, vomiting, diarrhea, and constipation. 17:01 Skin: Positive for abscess, cellulitis. Exam: 17:01 Constitutional: This is a well developed, well nourished patient who is awake, alert, ms3 and in no acute distress. Head/Face: Normocephalic, atraumatic. Chest/axilla: Normal chest wall appearance and motion. Nontender with no deformity. Cardiovascular: Regular rate and rhythm with a normal S1 and S2. No gallops, murmurs, or rubs. Normal PMI, no JVD. No pulse deficits. Respiratory: Lungs have equal breath sounds bilaterally, clear to auscultation and percussion. No rales, rhonchi or wheezes noted. No increased work of breathing, no retractions or nasal flaring. Abdomen/GI: Soft, non-tender, with normal bowel sounds. No distension or tympany. No guarding or rebound. No evidence of tenderness throughout. 17:01 Skin: abscess, that is moderate sized, of the right arm, cellulitis, that is moderate, on the right arm. Vital Signs: 16:24 BP 117 / 95; Pulse 121; Resp 20; Temp 99.0; Pulse Ox 98% ; Weight 74.84 kg; Height 6 kb3 ft. 0 in. (182.88 cm); Pain 4/10; 16:24 Body Mass Index 22.38 (74.84 kg, 182.88 cm) kb3 MDM: 16:33 Patient medically screened. ms3 17:01 Differential diagnosis: abscess, cellulitis, insect bite. Data reviewed: vital signs, ms3 nurses notes, and as a result, I will discharge patient. Counseling: I had a detailed discussion with the patient and/or guardian regarding: the historical points, exam findings, and any diagnostic results supporting the discharge/admit diagnosis, the need for outpatient follow up, to return to the emergency department if symptoms worsen or persist or if there are any questions or concerns that arise at home. ED course: Consideration of hospitalization: Elevated heart rate hospitalization was considered; however, patient elected for outpatient antibiotics and strict return precautions. Prescriptions: Keflex and Bactrim DS Diagnostic test considered but not performed: Discussed obtaining CBC and BMP with patient and patient declined Discussed necessity to follow-up with Dr. Conklin in 2 to 3 days. Patient stands agrees with plan. All questions were answered. Return precautions discussed include worsening symptoms, fevers, chills, or any other concerns. . Administered Medications: No medications were administered Disposition Summary: 08/29/22 17:02 Discharge Ordered Location: Home ms3 Condition: Stable ms3 Diagnosis - Cellulitis of right axilla ms3 - Cutaneous abscess of right axilla ms3 Followup: ms3 - With: Saul Conklin DO - When: 2 - 3 days - Reason: Recheck today's complaints Discharge Instructions: - Discharge Summary Sheet ms3 - Skin Abscess ms3 - Cellulitis, Adult ms3 Forms: - Medication Reconciliation Form ms3 - Thank You Letter ms3 - Antibiotic Education ms3 - Prescription Opioid Use ms3 Prescriptions: - Cephalexin 500 mg Oral Capsule - take 1 capsule by ORAL route every 6 hours for 5 days; 20 capsule; Refills: 0, ms3 Product Selection Permitted - Bactrim DS 800-160 mg Oral Tablet - take 1 tablet by ORAL route every 12 hours for 5 days; 10 tablet; Refills: 0, ms3 Product Selection Permitted Signatures: Andrés Newsoem DO DO ms3 Kathy Stone RN RN kb3 Corrections: (The following items were deleted from the chart) 16: 16:27 Allergies: KNDA; kb3 kb3 16:28 16:27 Home Meds: carvedilol 12.5 mg Oral tab 1 tab 2 times per day; kb3 kb3 17:07 17:01 This 42 yrs old Male presents to ER via Ambulatory with complaints of Abscess - ms3 right inner arm, Skin Problem. ms3
[2022-08-29 18:28] VITALS: BP 117/95; TEMP 99; O2SAT 98
== END 2022-08-29 18:06 | disposition home or self-care (01) ==
LOC: ER 15:59
DX: L03.111 Cellulitis of right axilla (principal); L02.411 Cutaneous abscess of right axilla; F17.210 Nicotine dependence, cigarettes, uncomplicated; Z88.5 Allergy status to narcotic agent
CPT/HCPCS: 99282